=== PATIENT | male | born 1935 | race American Indian/Alaskan Native ===

== ENCOUNTER 2018-11-12 08:06 | Day surgery (SDC) | payer MEDICARE, OTHER ==
[~2018-11-12] VITALS: Ht 175.3 cm; Wt 63.6 kg
[2018-11-12] MEDS ORDERED: fentaNYL/PF 50MCG/1 ML 2ML syringe ONE (08:08)
[2018-11-12] MEDS ORDERED: MIDAZolam 5mg/5ml vial ONE (08:09)
[2018-11-12] MEDS ORDERED: LIDOcaine Viscous 15ml cup ONE (08:09)
[2018-11-12 08:17] VITALS: BP 125/69
[2018-11-12] MEDS ORDERED: DOCU100C41 PO (08:33)
[2018-11-12] MEDS ORDERED: METO-384 PO (08:33)
[2018-11-12] MEDS ORDERED: OMEP-50 (08:34)
[2018-11-12] MEDS ORDERED: AMLO10TA PO (08:34)
[2018-11-12] MEDS ORDERED: LISI10TA4 PO (08:35)
[2018-11-12] MEDS ORDERED: ASPI-611 PO (08:36)
[2018-11-12] MEDS ORDERED: CLOP75TA33 PO (08:36)
[2018-11-12] MEDS ORDERED: FLAX100031 PO (08:37)
[2018-11-12] MEDS ORDERED: ACET-812 PO (08:38)
[2018-11-12] MEDS ORDERED: NATEGLINIDE (08:38)
[2018-11-12 09:48] VITALS: BP 127/57
[2018-11-12 09:58] VITALS: BP 135/60
[2018-11-12 10:08] VITALS: BP 127/65
[2018-11-12 10:18] VITALS: BP 147/68
== END 2018-11-12 10:30 | disposition home or self-care (01) ==
LOC: GI LAB 08:06
PROVIDERS: ATTEND Internal Medicine Gastroenterology
DX: K31.7 Polyp of stomach and duodenum (principal); K92.2 Gastrointestinal hemorrhage, unspecified; K31.89 Other diseases of stomach and duodenum
CPT/HCPCS: 43251; 43255; C1773; G0500; J2250; J3010; J7040; 88305; 99152; 99153; A4620